=== PATIENT | male | born 1960 | race Caucasian/White ===

== ENCOUNTER 2018-11-22 13:46 | Emergency (ER) | payer OTHER, SELFPAY ==
--- NOTE | 2018-11-22 13:48 | W.ED.GENAD ---
Discharge Plan Disposition Patient Disposition: HOME Condition: Good Discharge Details Chief Complaint: Laceration Clinical Impression: Laceration of leg Primary Care Provider: Josie Lam ED Provider: Loree Benjamin Home Meds and New Rx's Prescriptions: No Action No Known Home Meds RF: 0 Discharge Instructions Instructions: Laceration (ED) Additional Instructions: Keep wound clean, dry, covered. Tylenol and ibuprofen as needed for discomfort. Please keep current dressing on for the next 24 hours. After that time, you may cover with standard dressing. Please monitor for signs of infection including redness, warmth, drainage, increased pain, fever/chills. If you develop these or other new/worsening symptoms please seek care urgently once again. You may wash with running water and soap but please do not soak or submerge as this may increase her risk of infection. Please return in 12 days for suture removal. Tetanus updated today. Discharge Data Discharge Date/Time-TO BE ENTERED AT DEPARTURE: 11/22/18 15:28 Medical Decision Making Patient is a 58-year-old male presenting today with chief complaint of laceration to right lower extremity. He reports a prior to arrival, he was trying to move a soft that was on a homemade support device. Reports that he then tripped while pulling it backwards and the device fell forward in the middle of the device ran down the anterior aspect of the right lower extremity. He has parallel irregularly-shaped lacerations totaling 30 cm into the subcutaneous tissue. 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 This is not violate into the joint space. Does not cross over his previous incision. He is a full range of motion. Patient I discussed risk/benefits of closure as well as expected procedural steps. He voiced understanding and wished to proceed. Patient's tetanus is near expiring and I feel is a high risk wound that would benefit from tetanus prophylaxis, will update this today. Please see procedure note. Was performed using standard sterile technique. Wound was copiously irrigated with 1 L of saline. Explored to base in a bloodless field, no foreign body or debris was noted. Patient tolerated procedure well. Patient I discussed wound care in depth. Tetanus was updated. He will keep the current dressing on for the next 24 hours. We discussed activities to avoid. 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 He was placed in Jaxson wrap to help remind him to not force flex needle. However, I am hesitant to place him in a knee immobilizer as he is status post knee replacement I do not want to cause him to have any decreased AROM. Patient will return for suture removal in 12 days. He was given strict return precautions. All his questions and concerns were addressed and he is in agreement with this plan. HPI General Mode of arrival: ambulatory. Date/Time Provider Initiated Documentation: 11/22/18 13:48. Limitations to Documentation: no limitations. Information obtained by: patient, family and RN notes reviewed. History of Present Illness 58 year old M presents to the emergency department with the chief complaint of Laceration right lower extremity, described as mild, Quality is described as aching, and is localized to the right and lower extremity. Patient reports no radiation. Patient started experiencing this minute(s) and it has been constant. No relieving factors improve symptom(s), No exacerbating factors reported . Patient notes no other symptoms.. Patient did receive the following treatments prior to arrival, none Related Data Home Medications Medication Instructions Recorded Confirmed Unknown [No Known Home Meds] 11/22/18 11/22/18 Allergies Allergy/AdvReac Type Severity Reaction Status Date / Time No Known Allergies Allergy Unverified 11/22/18 13:55 Review of Systems Constitutional Reports as per HPI, Denies chills and Denies fever(s) Musculoskeletal Reports as per HPI Integumentary/Breasts Reports as per HPI Neurologic Reports as per HPI, Denies sensory deficit and Denies paresthesias [facility] Social History Smoking/Tobacco Use Status: Never Substance use type: does not use Exam Const General: cooperative, healthy appearing, comfortable, no acute distress and well developed Nutritional Appearance: average body habitus and well nourished Orientation: alert and awake Resp Effort & Inspection: normal respiratory effort, able to speak in complete sentences and no respiratory distress Cardio Rate: regular rate Rhythm: regular rhythm Skin Trauma: laceration (Patient has a irregularly-shaped 30 cm in total laceration to RLE) Neuro General: alert and awake Cognition: normal cognition Speech: speech normal Gait: normal gait Sensory Exam: no sensory deficits noted Extrem Right lower extremity: full ROM, normal capillary refill, no joint enlargement and knee Details: tenderness (Over patella and superior aspect of laceration), normal ROM and laceration; inspection abnormal (Laceration), no abrasions, no ecchymosis and no deformity; abnormal to inspection (Laceration as drawn below) Upper/lower leg/hip images: 1. 2. Patient has 2 irregularly-shaped lacerations running parallel into the subcutaneous tissue totaling approximately 30 cm Psych Appearance: grossly normal and well kempt Mental Status: mental status grossly normal Speech and Movement: speech and movement normal Procedures Laceration Laceration 1: Site: lower extremity Side (If applicable): right Size (cm): 30 Description: irregular Depth: simple, single layer Local Anesthetic: Lidocaine 1% and with Epi Amount of anesthesia used (mL): 20 Pre-repair: wound explored, irrigated extensively, deep structures intact, extensive debridement and wound margins revised Skin layer closed with: nylon Size (cm): 5-0 Number of sutures: 28 Technique: simple, interrupted and horizontal mattress
[2018-11-22 13:52] VITALS: BP 143/81; PULSE 83; RESP 16; TEMP 36.2; O2SAT 95
== END 2018-11-22 15:28 | disposition home or self-care (01) ==
LOC: ER 15:19
PROVIDERS: Emergency Provider Physician Assistant; PCP Family Medicine
DX: S81.811A Laceration without foreign body, right lower leg, initial encounter (principal); W31.2XXA Contact with powered woodworking and forming machines, initial encounter; Z96.651 Presence of right artificial knee joint
CPT/HCPCS: 12006; 90471

== ENCOUNTER 2020-06-20 07:57 | Outpatient (REF) | payer OTHER, SELFPAY ==
[2020-06-20 13:15] LABS: HCT 42.5 % (40.0-50.0); HGB 14.2 g/dL (13.5-17.5); MCH 30.5 pg (27.0-33.0); MCHC 33.4 % (32.0-36.0); MCV 91.2 fL (80-95); MPV 10.2 fL (8.0-11.0); Platelet Count 287 10^3/uL (130-400); RBC 4.66 10^6/uL (4.36-5.78); RDW 13.2 % (11.8-14.1); WBC 4.95 10^3/uL (4.4-10.8)
[2020-06-20 13:38] LABS: ALT 78 U/L (16-63); AST 33 U/L (15-37); Albumin 4.2 g/dL (3.4-5.0); Alkaline Phosphatase 90 U/L (46-116); Anion Gap 11.6 mmol/L (3-11); BUN 13 mg/dL (7-18); CO2 26.4 mmol/L (21.0-32.0); Calcium 9.5 mg/dL (8.5-10.1); Calculated LDL 172 mg/dL (<100); Chloride 103 mmol/L (98-107); Cholesterol 247 mg/dL (<200); Glucose 93 mg/dL (74-106); HDL Cholesterol 49 mg/dL (40-60); Potassium 4.6 mmol/L (3.5-5.1); Sodium 141 mmol/L (136-145); Triglyceride 133 mg/dL (<150)
[2020-06-20 13:52] LABS: Bilirubin, Total 0.6 mg/dL (0.2-1.0)
[2020-06-20 17:48] LABS: PSA, Screening 0.5 ng/mL (0.0-4.5)
== END 2020-06-20 07:58 | disposition home or self-care (01) ==
LOC: NCHCN 07:57
PROVIDERS: PCP Family Medicine; Visit Provider Internal Medicine
DX: F10.10 Alcohol abuse, uncomplicated (principal); Z13.6 Encounter for screening for cardiovascular disorders; Z12.5 Encounter for screening for malignant neoplasm of prostate
CPT/HCPCS: 80053; 80061; 84153; 85027

== ENCOUNTER 2020-12-13 10:01 | Outpatient (REF) | payer OTHER, SELFPAY ==
[2020-12-13 14:23] LABS: ALT 54 U/L (16-63); AST 23 U/L (15-37); Albumin 4.1 g/dL (3.4-5.0); Alkaline Phosphatase 83 U/L (46-116); Anion Gap 8.6 mmol/L (3-11); BUN 11 mg/dL (7-18); Bilirubin, Total 0.4 mg/dL (0.2-1.0); CO2 27.4 mmol/L (21.0-32.0); Calcium 9.1 mg/dL (8.5-10.1); Calculated LDL 164 mg/dL (<100); Chloride 105 mmol/L (98-107); Cholesterol 233 mg/dL (<200); Glucose 92 mg/dL (74-106); HDL Cholesterol 47 mg/dL (40-60); Potassium 4.7 mmol/L (3.5-5.1); Sodium 141 mmol/L (136-145); Total Protein 7.7 g/dL (6.4-8.2); Triglyceride 110 mg/dL (<150)
== END 2020-12-13 10:02 | disposition home or self-care (01) ==
LOC: NCHCN 10:01
PROVIDERS: PCP Family Medicine; Visit Provider Internal Medicine
DX: E78.5 Hyperlipidemia, unspecified (principal); R03.0 Elevated blood-pressure reading, without diagnosis of hypertension
CPT/HCPCS: 80053; 80061

== ENCOUNTER 2024-06-10 16:03 | Outpatient (REF) | payer OTHER, SELFPAY ==
[2024-06-10 15:21] LABS: HCT 41.1 % (40.0-50.0); HGB 13.4 g/dL (13.5-17.5); MCH 29.5 pg (27.0-33.0); MCHC 32.6 % (32.0-36.0); MCV 91 fL (80-95); MPV 10.1 fL (8.0-11.0); Platelet Count 319 10^3/uL (130-400); RBC 4.54 10^6/uL (4.36-5.78); RDW 12.4 % (11.8-14.1); RDW-SD 41.2 fL; WBC 5.24 10^3/uL (4.4-10.8)
[2024-06-10 16:42] LABS: ALT 25 U/L (16-63); AST 21 U/L (15-37); Alkaline Phosphatase 86 U/L (46-116); BUN 13 mg/dL (7-18); Bilirubin, Total 0.5 mg/dL (0.2-1.0); Calcium 9.6 mg/dL (8.5-10.1); Calculated LDL 137 mg/dL (<100); Chloride 106 mmol/L (98-107); Cholesterol 207 mg/dL (<200); Estimated GFR 83.01 (mL/min/1.73m2); Glucose 88 mg/dL (74-106); HDL Cholesterol 51 mg/dL (>or=40); Potassium 4.6 mmol/L (3.5-5.1); Sodium 141 mmol/L (136-145); Total Protein 7.8 g/dL (6.4-8.2); Triglyceride 95 mg/dL (<150)
== END 2024-06-10 16:04 | disposition home or self-care (01) ==
LOC: NCHCN 16:03
PROVIDERS: PCP Family Medicine; Visit Provider Internal Medicine
DX: R03.0 Elevated blood-pressure reading, without diagnosis of hypertension (principal); E78.5 Hyperlipidemia, unspecified
CPT/HCPCS: 80053; 80061; 85027